=== PATIENT | male | born 1970 | race Caucasian/White ===

== ENCOUNTER 2017-05-25 00:25 | Emergency (ER) | payer MEDICAID ==
[2017-05-25 00:39] VITALS: BP 126/95
== END 2017-05-25 03:45 | disposition home or self-care (01) ==
LOC: ED 00:25
DX: M54.42 Lumbago with sciatica, left side (principal)
CPT/HCPCS: J1885

== ENCOUNTER 2018-06-18 17:01 | Emergency (ER) | payer MEDICAID ==
[~2018-06-18] VITALS: Ht 165.1 cm; Wt 84.4 kg
[2018-06-18 17:03] VITALS: Ht 165.1 cm; Wt 84.4 kg
[2018-06-18 18:18] LABS: BASOPHIL % 0.4 % (0-2); PLATELET COUNT 259 x10^3mcL (130-400); RED CELL DISTRIBUTION WIDTH 13.1 % (11.5-14.5)
[2018-06-18 18:22] LABS: CALCIUM 8.6 mg/dL (8.5-10.1); CARBON DIOXIDE 25.8 mmol/L (21-32); CHLORIDE SERUM 101 mmol/L (98-107); CREATININE SERUM 0.9 mg/dL (0.7-1.3); GFR1 > 60 mL/min; GLUCOSE SERUM 105 mg/dL (74-106); SODIUM SERUM 137 mmol/L (136-145)
[2018-06-18 18:27] LABS: ALBUMIN 3.7 g/dL (3.4-5.0); ALKALINE PHOSPHATASE 97 U/L (46-116); ALT/SGPT 46 U/L (16-63); AST/SGOT 21 U/L (15-37); BILIRUBIN TOTAL 0.35 mg/dL (0.20-1.00); LIPASE 114 IU/L (73-393); TOTAL PROTEIN, SERUM 7.4 g/dL (6.4-8.2)
[2018-06-18 19:22] VITALS: BP 127/83
== END 2018-06-18 19:22 | disposition home or self-care (01) ==
LOC: ED 17:01
PROVIDERS: Emergency Medicine
DX: R07.2 Precordial pain (principal); R06.02 Shortness of breath; E78.00 Pure hypercholesterolemia, unspecified
CPT/HCPCS: 36415; Q0092

== ENCOUNTER 2019-03-26 17:32 | Emergency (ER) | payer MEDICAID ==
[~2019-03-26] VITALS: Ht 165.1 cm; Wt 71.3 kg
[2019-03-26 18:34] VITALS: Ht 165.1 cm; Wt 71.3 kg
[2019-03-26 19:51] VITALS: BP 128/79
== END 2019-03-26 19:51 | disposition home or self-care (01) ==
LOC: ED 17:32
DX: S61.217A Laceration without foreign body of left little finger without damage to nail, initial encounter (principal); S50.812A Abrasion of left forearm, initial encounter; E78.00 Pure hypercholesterolemia, unspecified; W25.XXXA Contact with sharp glass, initial encounter; Y93.89 Activity, other specified; Y92.89 Other specified places as the place of occurrence of the external cause; Y99.8 Other external cause status

== ENCOUNTER 2019-03-28 16:29 | Emergency (ER) | payer MEDICAID ==
[~2019-03-28] VITALS: Ht 165.1 cm; Wt 82.6 kg
[2019-03-28 16:41] VITALS: BP 125/73; Ht 165.1 cm; Wt 82.6 kg
== END 2019-03-28 18:36 | disposition home or self-care (01) ==
LOC: ED 16:29
DX: S61.217D Laceration without foreign body of left little finger without damage to nail, subsequent encounter (principal); S51.812D Laceration without foreign body of left forearm, subsequent encounter; E78.00 Pure hypercholesterolemia, unspecified; W45.8XXD Other foreign body or object entering through skin, subsequent encounter

== ENCOUNTER 2019-04-04 15:33 | Emergency (ER) | payer MEDICAID ==
[~2019-04-04] VITALS: Ht 165.1 cm; Wt 84.4 kg
[2019-04-04 15:45] VITALS: Ht 165.1 cm; Wt 84.4 kg
[2019-04-04 17:06] VITALS: BP 115/68
== END 2019-04-04 17:06 | disposition home or self-care (01) ==
LOC: ED 15:33
DX: S61.217D Laceration without foreign body of left little finger without damage to nail, subsequent encounter (principal); E78.00 Pure hypercholesterolemia, unspecified; W25.XXXD Contact with sharp glass, subsequent encounter